=== PATIENT | female | born 1965 | race Two or more races ===

== ENCOUNTER 2018-10-21 22:31 | Emergency (ER) | payer BC ==
[2018-10-21] MEDS ORDERED: DIPHENHYDRAMINE HCL 50 MG/ML VIAL ONE (22:38)
[2018-10-21] MEDS ORDERED: FAMOTIDINE INJ/PF 20 MG/2 ML SDV IV ONE (22:38)
[2018-10-21] MEDS ORDERED: METHYLPREDNISOLONE INJ 125 MG/2 ML SDV ONE (22:38)
[2018-10-21] MEDS ORDERED: EPINEPHRINE INJ/PF 1 MG/1 ML AMPULE ONE (22:39)
--- NOTE | 2018-10-21 22:55 | ER Document Report ---
ED General - General Chief Complaint: Allergic Reaction Stated Complaint: POSSIBLE ALLERGIC REACTION Time Seen by Provider: 10/21/18 22:43 Primary Care Provider: VASILE SAGE NP [Primary Care Provider] - Follow up as needed Mode of Arrival: Ambulatory Information source: Patient TRAVEL OUTSIDE OF THE [place] IN LAST 30 DAYS: No - HPI Notes: Patient is a 52-year-old female presents the emergency department with report of allergic reaction related to antibiotic doxycycline which was started 2 days ago. The patient noted a rash and itching and now swelling of the tongue and throat which started today. The patient states she was taking the doxycycline for a finger nailbed infection which is slightly improved. The patient denies any fever, chills, chest pain, difficulty breathing, nausea, vomiting, abdominal pain. She reports no previous similar allergic reactions. She denies any other new exposures. - Related Data Allergies/Adverse Reactions: doxycycline Allergy (Verified 10/21/18 23:02) Past Medical History - General Information source: Patient - Social History Smoking Status: Never Smoker Frequency of alcohol use: None Drug Abuse: None Lives with: Family Family History: None Review of Systems - Review of Systems -: Yes All other systems reviewed and negative Physical Exam - Vital signs Vitals: Temp Pulse Resp BP Pulse Ox 98.1 F 85 22 H 142/82 H 100 10/21/18 22:33 10/21/18 22:33 10/21/18 22:33 10/21/18 22:33 10/21/18 22:33 - Notes Notes: PHYSICAL EXAMINATION: GENERAL: Well-appearing, well-nourished and in no acute distress. HEAD: Atraumatic, normocephalic. EYES: Pupils equal round and reactive to light, extraocular movements intact, conjunctiva are normal. ENT: Nares patent, oropharynx without exudates. Moist mucous membranes. Mild swelling of the lips and tongue noted. NECK: Normal range of motion, supple without lymphadenopathy LUNGS: Breath sounds clear to auscultation bilaterally and equal. No wheezes rales or rhonchi. HEART: Regular rate and rhythm without murmurs ABDOMEN: Soft, nontender, nondistended abdomen. No guarding, no rebound. No masses appreciated. Female : deferred Musculoskeletal: Normal range of motion, no pitting or edema. No cyanosis. NEUROLOGICAL: Cranial nerves grossly intact. Normal speech, normal gait. Normal sensory, motor exams PSYCH: Normal mood, normal affect. SKIN: Warm, Dry, normal turgor, urticarial response noted on the trunk and extremities. No cellulitis or evidence for abscess. Skin exam right third fingertip shows no gross evidence for cellulitis or paronychia or abscess or tenosynovitis. Course - Re-evaluation Re-evalutation: 10/21/18 22:54 Patient was given IV Solu-Medrol, Pepcid and Benadryl. 10/22/18 01:19 On repeat evaluation after medications, the patient had no further allergy symptoms or rash or difficulty swallowing. O2 sats were 97 to 100%. Repeat lung exam showed no wheezing. No anaphylaxis or systemic reaction noted. - Vital Signs Vital signs: Temp Pulse Resp BP Pulse Ox 98.1 F 85 24 H 136/82 H 99 10/21/18 22:33 10/21/18 22:33 10/22/18 01:11 10/22/18 01:11 10/22/18 01:11 Discharge - Discharge Clinical Impression: Allergic reaction caused by a drug Qualifiers: Encounter type: initial encounter Qualified Code(s): T78.40XA - Allergy, unspecified, initial encounter Condition: Stable Disposition: HOME, SELF-CARE Instructions: Acute Allergic Reaction to Drugs ([facility]) Additional Instructions: You are allergic to doxycycline and tetracycline medications. Stop taking the doxycycline now. Take Benadryl as directed for any itching or swelling. Return to the emergency department in case of difficulty breathing or worsening rash or symptoms. Drink plenty of fluids. Prescriptions: Prednisone [Deltasone 10 mg Tablet] 10 mg PO ASDIR PRN #21 tablet PRN Reason: Referrals: VASILE SAGE NP [Primary Care Provider] - Follow up as needed
[2018-10-22 01:30] VITALS: BP 129/80
--- NOTE | 2018-10-23 08:08 | EKG REPORT ---
SEVERITY:- OTHERWISE NORMAL ECG - SINUS RHYTHM VENTRICULAR PREMATURE COMPLEX : Confirmed by: Jen Esparza MD 22-Oct-2018 21:31:00
== END 2018-10-22 01:31 | disposition home or self-care (01) ==
LOC: ER 22:31
DX: T78.40XA Allergy, unspecified, initial encounter (principal); R21 Rash and other nonspecific skin eruption; R22.0 Localized swelling, mass and lump, head
CPT/HCPCS: 93005; 99284; 96374; 96375; 93010; J1200; J2930; S0028

== ENCOUNTER 2019-01-12 09:00 | Day surgery (SDC) | payer BC ==
[~2019-01-12 09:00] MED LIST: PROPOFOL INJ 200 MG/20 ML VIAL IV ONE
[2019-01-12 10:06] VITALS: BP 138/88
--- NOTE | 2019-01-12 12:48 | Operative Report ---
Operative Report DATE OF SURGERY: 01/12/19 Operative Report: The risks, benefits and alternatives of the procedure including the risk of bleeding, perforation requiring surgery have been explained to the patient in detail and informed consent has been obtained. Patient is taken back to the endoscopy suite and placed in the left, lateral decubital position. Timeout was called. Propofol medication is administered. Rectal examination is done which did not reveal any masses, tears or fissures. An Olympus videoscope was introduced into the patient's rectum. Scope was then carefully advanced all the way to the cecum. Cecum was identified by the usual anatomical landmarks including the ileocecal valve as well as the appendiceal office. Photodocumentation is obtained. Scope was then sequentially pulled back via the various segments of the colon including the ascending colon, hepatic flexure, transverse colon, splenic flexure, descending colon finding to the rectosigmoid portions of the colon. Retroflexion maneuvers performed. PREOPERATIVE DIAGNOSIS: Colorectal cancer screening POSTOPERATIVE DIAGNOSIS: Normal screening colonoscopy OPERATION: Diagnostic colonoscopy SURGEON: BARON DYER ANESTHESIA: LMAC TISSUE REMOVED OR ALTERED: None. COMPLICATIONS: None. ESTIMATED BLOOD LOSS: None. INTRAOPERATIVE FINDINGS: As noted above. PROCEDURE: Patient tolerated the procedure well. No immediate postprocedure complications are noted. Patient is discharged in good condition. Discharge date 01/12/2019. Discharge diet: Regular. Discharge activity: Regular. 10 year surveillance colonoscopy. Patient is instructed to call the office or proceed to the emergency room should there be any further problems or questions.
== END 2019-01-12 10:12 | disposition home or self-care (01) ==
LOC: END 09:00
PROVIDERS: ATTEND Internal Medicine Gastroenterology
DX: Z12.11 Encounter for screening for malignant neoplasm of colon (principal); Z79.899 Other long term (current) drug therapy; Z79.51 Long term (current) use of inhaled steroids
CPT/HCPCS: 45378; J2704; 812

== ENCOUNTER 2019-08-10 12:41 | Emergency (ER) | payer BC ==
--- NOTE | 2019-08-10 13:03 | ER Document Report ---
ED Medical Screen (RME) - General Chief Complaint: Abdominal Pain Stated Complaint: ABDOMINAL PAIN Time Seen by Provider: 08/10/19 12:55 Primary Care Provider: VASILE SAGE NP [Primary Care Provider] - Follow up as needed Mode of Arrival: Ambulatory Information source: Patient Notes: HPI; 3-year-old female with no previous medical problems presents emergency room with lower abdominal pain for the past 2 weeks. Has gotten progressively worse over the past 3 days. Denies nausea or vomiting. Has been using [id number] Azo without relief. Denies any urinary symptoms. Nuys any trauma or injury. PE: Alert and oriented x3, mild discomfort noted. Clear to auscultation without rales rhonchi wheezes, heart: Regular rate and rhythm without murmurs rubs or gallops. Abdomen soft, mild distention, tenderness to the lower portion of the abdomen positive bowel sounds x4. I have greeted and performed a rapid initial assessment of this patient. A comp rehensive ED assessment and evaluation of the patient, analysis of test results and completion of the medical decision making process will be conducted by additional ED providers. I have specifically instructed the patient or family members with the patient to immediately return to any nursing staff should anything change in the patient's condition or with their chief complaint. TRAVEL OUTSIDE OF THE [place] IN LAST 30 DAYS: No - Related Data Allergies/Adverse Reactions: doxycycline Allergy (Verified 01/12/19 09:13) Past Medical History - Social History Frequency of alcohol use: None Drug Abuse: None - Past Medical History Cardiac Medical History: Denies: Hx Coronary Artery Disease, Hx Heart Attack, Hx Hypertension Pulmonary Medical History: Reports: Hx Asthma - CHILD Denies: Hx Bronchitis, Hx COPD, Hx Pneumonia Neurological Medical History: Denies: Hx Cerebrovascular Accident, Hx Seizures Renal/ Medical History: Denies: Hx Peritoneal Dialysis Musculoskeltal Medical History: Reports Hx Arthritis - Immunizations Hx Diphtheria, Pertussis, Tetanus Vaccination: No - UNSURE Physical Exam - Vital signs Vitals: Temp Pulse Resp BP Pulse Ox 98.3 F 89 18 136/95 H 98 08/10/19 12:45 08/10/19 12:45 08/10/19 12:45 08/10/19 12:45 08/10/19 12:45 Course - Vital Signs Vital signs: Temp Pulse Resp BP Pulse Ox 98.3 F 89 18 136/95 H 98 08/10/19 12:56 08/10/19 12:45 08/10/19 12:45 08/10/19 12:45 08/10/19 12:45 Doctor's Discharge - Discharge Referrals: VASILE SAGE NP [Primary Care Provider] - Follow up as needed
[2019-08-10] MEDS ORDERED: NORMAL SALINE 1000 ML 1,000 ML IV ONE (13:18)
[2019-08-10] MEDS ORDERED: RINGERS SOLUTION,LACTATED 1,000 ML IV ONE (13:18)
[2019-08-10] MEDS ORDERED: ONDANSETRON HCL INJ/PF 4 MG/2 ML SDV IV ONE (13:19)
[2019-08-10] MEDS ORDERED: MORPHINE SULFATE 10 MG/ML INJ IV ONE ×2 (13:19→14:47)
[2019-08-10 13:25] LABS: ABSOLUTE BASOPHILS # (AUTO) 0.1 10^3/uL (0.0-0.2); ABSOLUTE EOSINOPHILS # (AUTO) 0.5 10^3/uL (0.0-0.6); ABSOLUTE LYMPHOCYTES (AUTO) 2.6 10^3/uL (0.5-4.7); ABSOLUTE MONOCYTES (AUTO) 0.6 10^3/uL (0.1-1.4); ABSOLUTE NEUT (AUTO) 2.8 10^3/uL (1.7-8.2); BASOPHILS % (AUTO) 0.9 % (0-2); EOSINOPHILS % (AUTO) 7.2 % (0-6); HEMATOCRIT 42.1 % (36.0-47.0); HEMOGLOBIN 14.3 g/dL (12.0-15.5); LYMPHOCYTES % (AUTO) 40.6 % (13-45); MEAN CORPUSCULAR HEMOGLOBIN 29.9 pg (27.0-33.4); MEAN CORPUSCULAR HGB CONC 33.9 g/dL (32.0-36.0); MEAN CORPUSCULAR VOLUME 88 fl (80-97); MONOCYTES % (AUTO) 8.5 % (3-13); PLATELET COUNT 301 10^3/uL (150-450); RED BLOOD COUNT 4.78 10^6/uL (3.72-5.28); RED CELL DISTRIBUTION WIDTH 13.3 % (11.5-14.0); SEGMENTED NEUTROPHILS % (AUTO) 42.8 % (42-78); TOTAL CELLS COUNTED % (AUTO) 100 %; WHITE BLOOD COUNT 6.5 10^3/uL (4.0-10.5)
--- NOTE | 2019-08-10 13:26 | ER Document Report ---
ED GI/ - General Chief Complaint: Abdominal Pain Stated Complaint: ABDOMINAL PAIN Time Seen by Provider: 08/10/19 12:55 Primary Care Provider: ALEXANDRA JORDAN MD [ACTIVE STAFF] - Follow up in 1 week VASILE SAGE NP [NURSE PRACTITIONER] - Follow up as needed Mode of Arrival: Ambulatory Information source: Patient Notes: 53-year-old female presented to ED for complaint of a pelvic pain for about 2 weeks. She states is gotten progressively worse over the last 3 days. She denies any nausea or vomiting has been using [id number] Tylenol and Azo with no relief. She states she has no urinary symptoms. She states the pain started out mild and is become severe now she is curled up in a ball. She states she has been to the doctor multiple times told pelvic pain and they told her it was just a UTI or something and sent her home but the pain is continually gotten worse. She does have a mass in the suprapubic area at this time it is palpable through the abdomen TRAVEL OUTSIDE OF THE [place] IN LAST 30 DAYS: No - HPI Patient complains to provider of: Abdominal pain, Pelvic pain Onset: Other Timing/Duration: Gradual - 3 weeks, Worse Quality of pain: Cramping, Sharp Severity at maximum: Severe Severity in ED: Severe Pain Level: 5 Location: Suprapubic Vaginal bleeding (Compared to normal period): None LMP: Hysterectomy still has ovaries Associated symptoms: None Exacerbated by: Movement, Walking Relieved by: Denies Similar symptoms previously: Yes Recently seen / treated by doctor: No - Related Data Allergies/Adverse Reactions: doxycycline Allergy (Verified 01/12/19 09:13) Past Medical History - General Information source: Patient - Social History Smoking Status: Never Smoker Frequency of alcohol use: None Drug Abuse: None Lives with: Family Family History: None Patient has homicidal ideation: No - Past Medical History Cardiac Medical History: Reports: None Pulmonary Medical History: Reports: Hx Asthma - CHILD EENT Medical History: Reports: None Neurological Medical History: Reports: None Endocrine Medical History: Reports: None Renal/ Medical History: Reports: None Malignancy Medical History: Reports: None GI Medical History: Reports: None Musculoskeletal Medical History: Reports Hx Arthritis Skin Medical History: Reports None Psychiatric Medical History: Reports: None Traumatic Medical History: Reports: None Infectious Medical History: Reports: None Past Surgical History: Reports: Hx Hysterectomy - Partial hysterectomy still has ovaries - Immunizations Hx Diphtheria, Pertussis, Tetanus Vaccination: No - UNSURE Review of Systems - Review of Systems Constitutional: No symptoms reported EENT: No symptoms reported Cardiovascular: No symptoms reported Respiratory: No symptoms reported Gastrointestinal: Abdominal pain - Suprapubic Genitourinary: No symptoms reported Female Genitourinary: No symptoms reported Musculoskeletal: No symptoms reported Skin: No symptoms reported Hematologic/Lymphatic: No symptoms reported Neurological/Psychological: No symptoms reported -: Yes All other systems reviewed and negative Physical Exam - Vital signs Vitals: Temp Pulse Resp BP Pulse Ox 98.3 F 89 18 136/95 H 98 08/10/19 12:45 08/10/19 12:45 08/10/19 12:45 08/10/19 12:45 08/10/19 12:45 Interpretation: Normal - General General appearance: Appears well, Alert - HEENT Head: Normocephalic, Atraumatic Eyes: Normal Pupils: PERRL - Respiratory Respiratory status: No respiratory distress Chest status: Nontender Breath sounds: Normal Chest palpation: Normal - Cardiovascular Rhythm: Regular Heart sounds: Normal auscultation Murmur: No - Abdominal Inspection: Normal Distension: No distension Bowel sounds: Normal Tenderness: Tender - Suprapubic Organomegaly: Mass - Firm mass suprapubic - Back Back: Normal, Nontender - Extremities General upper extremity: Normal inspection, Nontender, Normal color, Normal ROM, Normal temperature General lower extremity: Normal inspection, Nontender, Normal color, Normal ROM, Normal temperature, Normal weight bearing. No: Nikko's sign - Neurological Neuro grossly intact: Yes Cognition: Normal Orientation: AAOx4 [place] Coma Scale Eye Opening: Spontaneous [place] Coma Scale Verbal: Oriented [place]ón[place] Coma Scale Motor: Obeys Commands [place] Coma Scale Total: 15 Speech: Normal Motor strength normal: LUE, RUE, LLE, RLE Sensory: Normal - Psychological Associated symptoms: Normal affect, Normal mood - Skin Skin Temperature: Warm Skin Moisture: Dry Skin Color: Normal Course - Re-evaluation Re-evalutation: 08/10/19 14:49 CT returned with a 6 result of the superficial tissue collection measuring 1.7 x 5 x 2.8 cm most likely postoperative seroma or hematoma. He states there is no air or surrounding inflammatory changes to suggest abscess but a early abscess cannot be excluded. This area is very firm to the palpation. I consulted Dr. Jordan who asked that I consult interventional radiologist to drain this area I spoke with the radiologist says that this was not something that needed to be drained or you could put a drain in. It is a firm area. I did have Dr. toribio go down and examined the mass. He states he is too firm to put a needle in. He states to please consult the surgeon. Patient also has a UTI and she will be treated with Rocephin for the UTI while were awaiting the surgeon to come in examined the patient. She is also been given more morphine due to the pain in the area. 08/10/19 15:23 The Serjio to the bedside drained the seroma removed 4cc of dark red drainage. He stated to have her follow-up with his office in about a week so he can reexamine the area. He stated that Keflex that I am using for her UTI will be good enough for coverage for what he did. He states he will write a consult note. - Vital Signs Vital signs: Temp Pulse Resp BP Pulse Ox 97.4 F 79 18 134/91 H 96 08/10/19 15:32 08/10/19 15:32 08/10/19 15:32 08/10/19 15:32 08/10/19 15:32 - Laboratory Result Diagrams: 08/10/19 13:04 08/10/19 13:04 Laboratory results interpreted by me: 08/10/19 08/10/19 08/10/19 13:04 13:04 13:04 Eos % (Auto) 7.2 H Carbon Dioxide 31 H Anion Gap 4 L Urine Urobilinogen 2.0 H Ur Leukocyte Esterase MODERATE H - Diagnostic Test Radiology reviewed: Image reviewed, Reports reviewed Discharge - Discharge Clinical Impression: suprapubic seroma UTI (urinary tract infection) Qualifiers: Urinary tract infection type: acute cystitis Hematuria presence: with hematuria Qualified Code(s): N30.01 - Acute cystitis with hematuria Condition: Stable Disposition: HOME, SELF-CARE Additional Instructions: URINARY TRACT INFECTION: Your evaluation indicates that you have a urinary tract infection. This is due to germs growing in the bladder. This is a common problem. This infection usually responds quickly to antibiotics. Your antibiotic should be taken exactly as prescribed. Drink plenty of fluids -- three to four quarts a day. Occasionally, a bladder anesthetic will be prescribed to help stop the feeling of urgency until the antibiotic has a chance to clear the infection. This may cause your urine to be dark orange. Certain urine infections require a culture. If the doctor obtained a culture, the results will be back in two days. You should call to see if a change in treatment is needed. A repeat urinalysis after you finish treatment is often recommended. The physician will let you know if further testing is required. Call the doctor if you develop fever, chills, flank pain, inability to urinate, or blood in the urine. You were seen today for a seroma which is a blood-filled pocket in your abdomen. This has been drained by the surgeon in the emergency room. He has requested that you follow-up with him in 1 week to follow-up to ensure that this is not return. I have given you the name and number for the surgeon for you to follow- up. CEPHALEXIN: The antibiotic you've been prescribed is a member of the cephalosporin class. This type of antibiotic covers a wide variety of infections, including those of the skin, lungs, and urinary tract. It's useful for staph infections. This antibiotic is slightly similar to the penicillin family. In rare cases, a person who is allergic to penicillin will also be allergic to this medication. If you have had a severe allergic reaction to penicillin, and have not taken this antibiotic since that time, notify your doctor. Antibiotics which cover many germs ("broad spectrum" antibiotics) are more likely to cause diarrhea or "yeast" infections. Women prone to vaginal yeast problems may suffer an attack after taking this antibiotic. In infants, oral thrush (white spots "stuck" on the cheek) or yeast diaper rash may result. See your doctor if these problems occur. Call at once if you develop itching, hives, shortness of breath, or lightheadedness. Pain Medication Injection You have received an injection of a pain medication. You should experience significant pain relief within 45 minutes. This drug is a narcotic -- it will impair your judgement, slow your reaction time and make you sleepy (as well as relieve your pain). Narcotics also can cause nausea. You should not drive, work with machinery, or perform any task requiring mental alertness until all effects of the medication are gone -- six to eight hours. Do not take any alcohol, or sedatives, and do not take any other medication without checking with your physician. Intravenous (IV) Fluids As part of your care today, you received intravenous (IV) fluids. IV fluids are administered to patients who are dehydrated or to those who have certain chemical (electrolyte) abnormalities that need correcting. FOLLOW-UP CARE: If you have been referred to a physician for follow-up care, call the physicians office for an appointment as you were instructed or within the next two days. If you experience worsening or a significant change in your symptoms, notify the physician immediately or return to the Emergency Department at any time for re-evaluation. Prescriptions: Cephalexin Monohydrate [Keflex 500 mg Capsule] 500 mg PO Q6H 7 Days #28 capsule Forms: Elevated Blood Pressure Referrals: VASILE SAGE NP [NURSE PRACTITIONER] - Follow up as needed ALEXANDRA JORDAN MD [ACTIVE STAFF] - Follow up in 1 week
[2019-08-10 13:30] LABS: APPEARANCE,URINE SLIGHTLY-CLOUDY; BILIRUBIN,URINE NEGATIVE (NEGATIVE); COLOR,URINE AMBER; GLUCOSE, URINE NEGATIVE (NEGATIVE); KETONES,URINE NEGATIVE (NEGATIVE); LEUKOCYTE ESTERASE,URINE MODERATE (NEGATIVE); NITRITE,URINE NEGATIVE (NEGATIVE); PROTEIN,URINE NEGATIVE (NEGATIVE); URINE SPECIFIC GRAVITY 1.021
[2019-08-10 13:44] LABS: ALBUMIN 4.4 g/dL (3.5-5.0); ALKALINE PHOSPHATASE 54 U/L (38-126); ASPARTATE AMINO TRANSFERASE 31 U/L (14-36); BILIRUBIN,TOTAL 0.9 mg/dL (0.2-1.3); BLOOD UREA NITROGEN 13 mg/dL (7-20); CALCIUM 9.7 mg/dL (8.4-10.2); CARBON DIOXIDE 31 mmol/L (22-30); CHLORIDE 102 mmol/L (98-107); GLUCOSE 77 mg/dL (75-110); POTASSIUM 4.7 mmol/L (3.6-5.0); TOTAL PROTEIN 7.7 g/dL (6.3-8.2)
[2019-08-10 13:46] LABS: ANION GAP 4 (5-19)
--- NOTE | 2019-08-10 14:26 | RADIOLOGY REPORT (SQ) ---
EXAM DESCRIPTION: CT ABD/PELVIS WITH IV ONLY IMAGES COMPLETED DATE/TIME: 08/10/2019 2:13 pm REASON FOR STUDY: pelvic mass post hysterectomy COMPARISON: None. TECHNIQUE: CT scan of the abdomen and pelvis performed using helical scanning technique with dynamic intravenous contrast injection. No oral contrast. Images reviewed with lung, soft tissue, and bone windows. Reconstructed coronal and sagittal MPR images reviewed. Delayed images for evaluation of the urinary system also acquired. All images stored on PACS. All CT scanners at this facility use dose modulation, iterative reconstruction, and/or weight based d osing when appropriate to reduce radiation dose to as low as reasonably achievable (ALARA). [facility]: Dose Right [facility]: CareDose [facility]: Dose Right [facility]: Teradose 4D [facility]: Orthobond CONTRAST TYPE AND DOSE: contrast/concentration: Isovue 350.00 mg/ml; Total Contrast Delivered: 66.0 ml; Total Saline Delivered: 65.0 ml RENAL FUNCTION: BUN 13, creatinine 0.68 RADIATION DOSE: CT Rad equipment meets quality standard of care and radiation dose reduction techniq ues were employed. CTDIvol: 5.1 - 6.3 mGy. DLP: 611 mGy-cm.. LIMITATIONS: None. FINDINGS: LOWER CHEST: No significant findings. No nodules or infiltrates. LIVER: Normal size. No masses. No dilated ducts. SPLEEN: Normal size. No focal lesions. PANCREAS: No masses. No significant calcifications. No adjacent inflammation or peripancreatic fluid collections. Pancreatic duct not dilated. GALLBLADDER: No identified stones by CT criteria. No inflammatory changes to suggest cholecystitis. ADRENAL GLANDS: No significant masses or asymmetry. RIGHT KIDNEY AND URETER: No solid masses. No significant calcifications. No hydronephrosis or hyd roureter. LEFT KIDNEY AND URETER: No solid masses. No significant calcifications. No hydronephrosis or hydr oureter. AORTA AND VESSELS: No aneurysm. No dissection. Renal arteries, SMA, celiac without stenosis. RETROPERITONEUM: No retroperitoneal adenopathy, hemorrhage or masses. BOWEL AND PERITONEAL CAVITY: No masses or inflammatory changes. No free fluid or peritoneal masses. APPENDIX: No surrounding inflammation. The tip of the appendix is bulbous in shape containing stool. PELVIS: No mass. No free fluid. Normal bladder. ABDOMINAL WALL: There is a 1.7 x 5.0 x 2.8 cm fluid collection in the anterior abdominal wall. This lies just superficial to the abdominis rectus muscle. Most likely postoperative seroma. The collect ion contains no air. Hounsfield units measure 31. The collection lies just inferior to the umbilicu s. BONES: No significant or acute findings. OTHER: No other significant finding. IMPRESSION: Superficial soft tissue fluid collection measuring 1.7 x 5.0 x 2.8 cm. Most likely post operative seroma or hematoma. No air or surrounding inflammatory change to suggest abscess although early abscess formation cannot be excluded. TECHNICAL DOCUMENTATION: JOB ID: [id number] Quality ID # [id number]: Final reports with documentation of one or more dose reduction techniques (e.g., Au tomated exposure control, adjustment of the mA and/or kV according to patient size, use of iterative reconstruction technique) 2010 [employer]- All Rights Reserved Reading location - IP/workstation name: [email or web address]
[2019-08-10] MEDS ORDERED: CEFTRIAXONE 1 GM/D5W RTU 1 GM/50 ML RTUPB IV ONE (14:46)
[2019-08-10 15:33] VITALS: BP 134/91
--- NOTE | 2019-08-10 15:38 | Operative Report ---
Nonrecallable Operative Report DATE OF SURGERY: 08/10/19 PREOPERATIVE DIAGNOSIS: Abdominal wall seroma POSTOPERATIVE DIAGNOSIS: Abdominal wall seroma OPERATION: Percutaneous drainage abdominal wall seroma SURGEON: ALEXANDRA JORDAN ANESTHESIA: Local TISSUE REMOVED OR ALTERED: 15 cc of serous fluid COMPLICATIONS: None ESTIMATED BLOOD LOSS: 0 INTRAOPERATIVE FINDINGS: Abdominal wall seroma PROCEDURE: Patient was seen lying on her gurney in the emergency room. The lower abdomen over the swelling was prepped with a alcohol swab. Using a 16-gauge needle the seroma cavity was entered and we drained approximately 15 to 20 cc of serosanguineous fluid. This resolved the her pain and the swelling. We will see the patient back in 1 week for follow-up in surgical clinic.
== END 2019-08-10 15:43 | disposition home or self-care (01) ==
LOC: ER 12:41
PROC: 0J983ZZ Drainage of Abdomen Subcutaneous Tissue and Fascia, Percutaneous Approach (ICD-10-PCS; principal; 2019-08-10)
DX: N30.01 Acute cystitis with hematuria (principal); L02.211 Cutaneous abscess of abdominal wall; R10.30 Lower abdominal pain, unspecified; R10.9 Unspecified abdominal pain; R10.2 Pelvic and perineal pain; J45.909 Unspecified asthma, uncomplicated; Z88.1 Allergy status to other antibiotic agents
CPT/HCPCS: 96376; 99284; 96361; 96375; 96365; 36415; 87086; 83690; 85025; 87088; 80053; 81001; 87186; 74177; 10140; J2270; J2405; J7030; J0696

== ENCOUNTER 2019-09-23 09:41 | Emergency (ER) | payer BC ==
--- NOTE | 2019-09-23 10:22 | ER Document Report ---
ED Medical Screen (RME) - General Chief Complaint: Abdominal Pain Stated Complaint: ABDOMINAL PAIN Time Seen by Provider: 09/23/19 10:07 Notes: HPI: 53-year-old female presenting for worsening abdominal wall pain. Patient states for 2 months she has had a tender swollen area in the lower suprapubic region. Patient states she was seen here August 09 and was seen by the surgeon Dr. Bassett. States that he aspirated fluid from the area and it felt better. She saw him in the office after that he aspirated fluid again and it felt better. She states the area progressively becomes more tender and now she cannot take the pain anymore. Patient states the pain get so bad she feels like she is going to pass out. She has not had a fever. She has not noticed any redness overlying the area. She states she has an appointment September 30 in the office again with surgery. PHYSICAL EXAMINATION: There is a firm tender area midline suprapubic region just below the umbilicus with no overlying erythema. Discussed with Dr. Caballero who evaluated patient in triage I have greeted and performed a rapid initial assessment of this patient. A comprehensive ED assessment and evaluation of the patient, analysis of test results and completion of medical decision making process will be conducted by an additional ED providers. TRAVEL OUTSIDE OF THE [place] IN LAST 30 DAYS: No - Related Data Allergies/Adverse Reactions: doxycycline Allergy (Verified 01/12/19 09:13) Past Medical History - Past Medical History Cardiac Medical History: Denies: Hx Coronary Artery Disease, Hx Heart Attack, Hx Hypertension Pulmonary Medical History: Reports: Hx Asthma - CHILD Denies: Hx Bronchitis, Hx COPD, Hx Pneumonia Neurological Medical History: Denies: Hx Cerebrovascular Accident, Hx Seizures Renal/ Medical History: Denies: Hx Peritoneal Dialysis Musculoskeltal Medical History: Reports Hx Arthritis Past Surgical History: Reports: Hx Hysterectomy - Partial hysterectomy still has ovaries, Other - Abdominoplasty - Immunizations Hx Diphtheria, Pertussis, Tetanus Vaccination: No - UNSURE Physical Exam - Vital signs Vitals: Temp Pulse Resp BP 97.7 F 89 16 120/83 09/23/19 09:46 09/23/19 09:46 09/23/19 09:46 09/23/19 09:46 Course - Vital Signs Vital signs: Temp Pulse Resp BP Pulse Ox 97.7 F 89 16 120/83 09/23/19 09:46 09/23/19 09:46 09/23/19 09:46 09/23/19 09:46
[2019-09-23 10:43] LABS: ABSOLUTE EOSINOPHILS # (AUTO) 0.2 10^3/uL (0.0-0.6); ABSOLUTE LYMPHOCYTES (AUTO) 2.5 10^3/uL (0.5-4.7); ABSOLUTE MONOCYTES (AUTO) 0.5 10^3/uL (0.1-1.4); ABSOLUTE NEUT (AUTO) 2.3 10^3/uL (1.7-8.2); BASOPHILS % (AUTO) 0.6 % (0-2); EOSINOPHILS % (AUTO) 3.6 % (0-6); HEMATOCRIT 41.1 % (36.0-47.0); HEMOGLOBIN 13.9 g/dL (12.0-15.5); LYMPHOCYTES % (AUTO) 45.1 % (13-45); MEAN CORPUSCULAR HEMOGLOBIN 30.1 pg (27.0-33.4); MEAN CORPUSCULAR HGB CONC 33.8 g/dL (32.0-36.0); MEAN CORPUSCULAR VOLUME 89 fl (80-97); MONOCYTES % (AUTO) 9.8 % (3-13); PLATELET COUNT 288 10^3/uL (150-450); RED BLOOD COUNT 4.62 10^6/uL (3.72-5.28); RED CELL DISTRIBUTION WIDTH 12.9 % (11.5-14.0); SEGMENTED NEUTROPHILS % (AUTO) 40.9 % (42-78); TOTAL CELLS COUNTED % (AUTO) 100 %; WHITE BLOOD COUNT 5.6 10^3/uL (4.0-10.5)
[2019-09-23 10:47] LABS: APPEARANCE,URINE CLEAR; BILIRUBIN,URINE NEGATIVE (NEGATIVE); COLOR,URINE YELLOW; GLUCOSE, URINE NEGATIVE (NEGATIVE); KETONES,URINE TRACE mg/dL (NEGATIVE); LEUKOCYTE ESTERASE,URINE NEGATIVE (NEGATIVE); NITRITE,URINE NEGATIVE (NEGATIVE); PROTEIN,URINE NEGATIVE (NEGATIVE); URINE SPECIFIC GRAVITY 1.023
[2019-09-23 10:59] LABS: ALBUMIN 4.3 g/dL (3.5-5.0); ALKALINE PHOSPHATASE 80 U/L (38-126); ASPARTATE AMINO TRANSFERASE 27 U/L (14-36); BILIRUBIN,TOTAL 0.4 mg/dL (0.2-1.3); BLOOD UREA NITROGEN 11 mg/dL (7-20); CALCIUM 9.7 mg/dL (8.4-10.2); CHLORIDE 105 mmol/L (98-107); GLUCOSE 85 mg/dL (75-110); POTASSIUM 4.3 mmol/L (3.6-5.0); TOTAL PROTEIN 7.3 g/dL (6.3-8.2)
[2019-09-23 11:04] LABS: ANION GAP 5 (5-19); CARBON DIOXIDE 29 mmol/L (22-30)
--- NOTE | 2019-09-23 11:55 | RADIOLOGY REPORT (SQ) ---
EXAM DESCRIPTION: CT ABD/PELVIS WITH IV ONLY IMAGES COMPLETED DATE/TIME: 09/23/2019 11:21 am REASON FOR STUDY: eval abd wall fluid/tender area COMPARISON: 08/10/2019 TECHNIQUE: CT scan of the abdomen and pelvis performed using helical scanning technique with dynamic intravenous contrast injection. No oral contrast. Images reviewed with lung, soft tissue, and bone windows. Reconstructed coronal and sagittal MPR images reviewed. Delayed images for evaluation of the urinary system also acquired. All images stored on PACS. All CT scanners at this facility use dose modulation, iterative reconstruction, and/or weight based d osing when appropriate to reduce radiation dose to as low as reasonably achievable (ALARA). [facility]: Dose Right [facility]: CareDose [facility]: Dose Right [facility]: Teradose 4D [facility]: Exepron CONTRAST TYPE AND DOSE: contrast/concentration: Isovue 350.00 mmol/ml; Total Contrast Delivered: 67. 0 ml; Total Saline Delivered: 65.0 ml RENAL FUNCTION: BUN 11, creatinine 0.74 RADIATION DOSE: CT Rad equipment meets quality standard of care and radiation dose reduction techniq ues were employed. CTDIvol: 5.6 - 7.3 mGy. DLP: 698 mGy-cm.. LIMITATIONS: None. FINDINGS: LOWER CHEST: No significant findings. No nodules or infiltrates. LIVER: Normal size. No masses. No dilated ducts. SPLEEN: Normal size. No focal lesions. PANCREAS: No masses. No significant calcifications. No adjacent inflammation or peripancreatic fluid collections. Pancreatic duct not dilated. GALLBLADDER: No identified stones by CT criteria. No inflammatory changes to suggest cholecystitis. ADRENAL GLANDS: No significant masses or asymmetry. RIGHT KIDNEY AND URETER: No solid masses. No significant calcifications. No hydronephrosis or hyd roureter. LEFT KIDNEY AND URETER: No solid masses. No significant calcifications. No hydronephrosis or hydr oureter. AORTA AND VESSELS: No aneurysm. No dissection. Renal arteries, SMA, celiac without stenosis. RETROPERITONEUM: No retroperitoneal adenopathy, hemorrhage or masses. BOWEL AND PERITONEAL CAVITY: No masses or inflammatory changes. No free fluid or peritoneal masses. APPENDIX: Not visualized. PELVIS: No mass. No free fluid. Normal bladder. ABDOMINAL WALL: Persistent small fluid collection along the lower anterior abdominal wall. It measur es 1.4 x 5.9 cm in greatest diameter. Persistent peripheral enhancement. BONES: No significant or acute findings. OTHER: No other significant finding. IMPRESSION: The subcutaneous anterior abdominal wall fluid collection remains. Largest diameter is 1.4 x 5.9 cm on today's exam. TECHNICAL DOCUMENTATION: JOB ID: [id number] Quality ID # [id number]: Final reports with documentation of one or more dose reduction techniques (e.g., Au tomated exposure control, adjustment of the mA and/or kV according to patient size, use of iterative reconstruction technique) 2010 [employer]- All Rights Reserved Reading location - IP/workstation name: [email or web address]
[2019-09-23] MEDS ORDERED: HYDROCODONE/ACETAMINOPHEN 5-325 MG TABLET PO ONE (12:36)
--- NOTE | 2019-09-23 12:36 | ER Document Report ---
ED General - General Chief Complaint: Abdominal Pain Stated Complaint: ABDOMINAL PAIN Time Seen by Provider: 09/23/19 10:07 Primary Care Provider: MILKA BLUNT MD [Primary Care Provider] - Follow up as needed Mode of Arrival: Ambulatory Information source: Patient TRAVEL OUTSIDE OF THE [place] IN LAST 30 DAYS: No - HPI Notes: Patient presents complaint of abdominal pain. She states this pain is in the center of her abdomen and the lower aspect below the umbilicus. She states she has had it several times before. She states she has a collection of fluid there is a has been drained by Dr. Jordan several times. She states that she has a new appointment on September 30 which is approximately 8 days from now. She states th e pain is so bad that she cannot wait until September 30. She states his pain is severe and constant. It is sharp. It radiates across her lower abdomen. She states is worse with movement and better with rest. She denies any vomiting or diarrhea. No fevers. - Related Data Allergies/Adverse Reactions: doxycycline Allergy (Verified 01/12/19 09:13) Past Medical History - General Information source: Patient - Social History Smoking Status: Never Smoker Frequency of alcohol use: None Drug Abuse: None Family History: None - Past Medical History Cardiac Medical History: Denies: Hx Coronary Artery Disease, Hx Heart Attack, Hx Hypertension Pulmonary Medical History: Reports: Hx Asthma - CHILD Denies: Hx Bronchitis, Hx COPD, Hx Pneumonia Neurological Medical History: Denies: Hx Cerebrovascular Accident, Hx Seizures Renal/ Medical History: Denies: Hx Peritoneal Dialysis Musculoskeletal Medical History: Reports Hx Arthritis Past Surgical History: Reports: Hx Hysterectomy - Partial hysterectomy still has ovaries, Other - Abdominoplasty - Immunizations Hx Diphtheria, Pertussis, Tetanus Vaccination: No - UNSURE Review of Systems - Review of Systems Constitutional: denies: Chills, Fever Cardiovascular: denies: Chest pain, Palpitations Respiratory: denies: Cough, Short of breath -: Yes All other systems reviewed and negative Physical Exam - Vital signs Vitals: Temp Pulse Resp BP 97.7 F 89 16 120/83 09/23/19 09:46 09/23/19 09:46 09/23/19 09:46 09/23/19 09:46 Interpretation: Normal - General General appearance: Appears well, Alert - HEENT Head: Normocephalic, Atraumatic Eyes: Normal Pupils: PERRL - Respiratory Respiratory status: No respiratory distress Chest status: Nontender Breath sounds: Normal Chest palpation: Normal - Cardiovascular Rhythm: Regular Heart sounds: Normal auscultation Murmur: No - Abdominal Inspection: Normal Distension: No distension Bowel sounds: Normal Tenderness: Tender - Patient has marked tenderness of the lower central abdomen. Some mild fluctuance consistent with a seroma. There is voluntary guarding. Organomegaly: No organomegaly - Back Back: Normal, Nontender - Extremities General upper extremity: Normal inspection, Nontender, Normal color, Normal ROM, Normal temperature General lower extremity: Normal inspection, Nontender, Normal color, Normal ROM, Normal temperature, Normal weight bearing. No: Nikko's sign - Neurological Neuro grossly intact: Yes Cognition: Normal Orientation: AAOx4 [place] Coma Scale Eye Opening: Spontaneous [place] Coma Scale Verbal: Oriented [place] Coma Scale Motor: Obeys Commands Ver[place] Coma Scale Total: 15 Speech: Normal Motor strength normal: LUE, RUE, LLE, RLE Sensory: Normal - Psychological Associated symptoms: Normal affect, Normal mood - Skin Skin Temperature: Warm Skin Moisture: Dry Skin Color: Normal Course - Re-evaluation Re-evalutation: 09/23/19 12:33 Patient has no white count. No fever. Her vital signs are stable. Inspection of the area is unremarkable. I called and discussed the case with Dr. Bonds. He states that she can be seen in surgery clinic tomorrow by Dr. Jordan. - Vital Signs Vital signs: Temp Pulse Resp BP Pulse Ox 97.7 F 89 16 120/83 09/23/19 09:46 09/23/19 09:46 09/23/19 09:46 09/23/19 09:46 - Laboratory Result Diagrams: 09/23/19 10:20 09/23/19 10:20 Laboratory results interpreted by me: 09/23/19 09/23/19 10:15 10:20 Lymph % (Auto) 45.1 H Seg Neutrophils % 40.9 L Urine Ketones TRACE H Urine Urobilinogen 2.0 H - Diagnostic Test Radiology reviewed: Image reviewed, Reports reviewed Discharge - Discharge Clinical Impression: Seroma Condition: Stable Disposition: HOME, SELF-CARE Instructions: Abdominal Pain ([facility]) Additional Instructions: Please go to Dr. Jordan's office tomorrow. Prescriptions: Hydrocodone/Acetaminophen [Vansant 5-325 mg Tablet] 1 tab PO Q6 PRN 2 Days #5 tablet PRN Reason: Forms: Return to Work Referrals: MILKA BLUNT MD [Primary Care Provider] - Follow up as needed ALEXANDRA JORDAN MD [ACTIVE STAFF] - Follow up tomorrow
[2019-09-23 13:03] VITALS: BP 123/88
== END 2019-09-23 13:03 | disposition home or self-care (01) ==
LOC: ER 09:41
DX: S31.109A Unspecified open wound of abdominal wall, unspecified quadrant without penetration into peritoneal cavity, initial encounter (principal); R10.30 Lower abdominal pain, unspecified; X58.XXXA Exposure to other specified factors, initial encounter
CPT/HCPCS: 36415; 74177; 80053; 81001; 85025; 99284

== ENCOUNTER 2019-10-29 06:45 | Day surgery (SDC) | payer BC ==
[~2019-10-29 06:45] MED LIST changes: +CEFAZOLIN 2 GM/D5W RTU 2 GM/50 ML RTUPB IV PRN; -PROPOFOL INJ 200 MG/20 ML VIAL IV ONE
[2019-10-29] MEDS ORDERED: FENTANYL CITRATE INJ/PF 250 MCG/5 ML AMPULE ONE (07:11)
[2019-10-29] MEDS ORDERED: EPHEDRINE SULFATE INJ 50 MG/1 ML AMPULE ONE (07:11)
[2019-10-29] MEDS ORDERED: PROPOFOL INJ 200 MG/20 ML VIAL IV ONE (07:11)
[2019-10-29] MEDS ORDERED: MIDAZOLAM 2 MG/2 ML INJ ONE (07:11)
[2019-10-29] MEDS ORDERED: CEFAZOLIN 2 GM/D5W RTU 2 GM/50 ML RTUPB IV ONE (08:06)
[2019-10-29] MEDS ORDERED: BUPIVACAINE INJ/PF LIPOSOME/PF 266 MG/20 ML SDV ONE (08:31)
[2019-10-29] MEDS ORDERED: BUPIVACAINE HCL 0.25% /EPINEPHRINE INJ/PF 30 ML SDV ONE (08:31)
[2019-10-29] MEDS ORDERED: FENTANYL CITRATE INJ/PF 100 MCG/2 ML AMPUL IV PRN ×3 (09:35)
[2019-10-29] MEDS ORDERED: OXYCODONE-ACETAMINOPHEN 5-325 MG TABLET PO PRN ×3 (09:35→10:14)
[2019-10-29] MEDS ORDERED: MEPERIDINE HCL/PF INJ 25 MG/1 ML DISP.SYRIN IV PRN (09:35)
[2019-10-29] MEDS ORDERED: PROMETHAZINE HCL INJ 25 MG/1 ML VIAL IV PRN ×2 (09:35)
[2019-10-29] MEDS ORDERED: DIPHENHYDRAMINE HCL 50 MG/ML VIAL IV PRN (09:35)
--- NOTE | 2019-10-29 09:58 | Operative Report ---
Nonrecallable Operative Report DATE OF SURGERY: 10/29/19 PREOPERATIVE DIAGNOSIS: abdominal wall mass POSTOPERATIVE DIAGNOSIS: abdominal wall mass OPERATION: panniculectomy revision and excision of abdominal wall mass SURGEON: ALEXANDRA JORDAN 1ST MEDICAL RECEPTION: SANDEEP SETH ANESTHESIA: GA TISSUE REMOVED OR ALTERED: abdominal wall mass, skin, subcutaneous tissue COMPLICATIONS: none ESTIMATED BLOOD LOSS: 50cc PROCEDURE: Patient was brought to the operating room awake alert stable condition placed in the operative table supine position induced under general anesthesia intubated. The abdomen was prepped draped in usual sterile manner for the procedure. The lower transverse scar just above the pubic symphysis had and what had widened and therefore we excised this in elliptical fashion approximately a 35 cm length by 1.5 cm wide elliptical incision was made in the lower midline scar that skin was excised. With that was completed we used skin hooks to raise the superior flap and this was done by dissecting down through subcutaneous tissue to the fascia of the rectus muscle and then extending a superior skin flap as we reached the umbilicus we noted the abdominal mass in the subcutaneous tissue and therefore separately we raised the skin above that area of subcutaneous tissue with the rakes this was done with Bovie cautery. Once we were above the mass we excised that section of subcutaneous tissue and opened on the back table. The capsule of the mass appeared to be a old organized hematoma however it was sent down to pathology. Once this was completed we will raised the lower skin flap with Bovie cautery on the rectus muscle to the pubic symphysis and then closed it in 2 layers the Jarred's layer was closed with interrupted 2-0 Vicryl over a Garcia-Ibrahim drain coming out through a separate stab wound in the left lower quadrant the the superficial subcutaneous tissue was closed with interrupted 3-0 Vicryl and then skin was closed with intracuticular 3-0 Maxon Steri-Strips then completed the procedure sterile dressing was applied as well as an abdominal binder and the patient was then transferred recovery in stable condition sponge and needle counts were correct x2 KENDALL Gonzalez was present for the entire operation for help with wound retraction wound closure.
--- NOTE | 2019-10-29 10:03 | Discharge Summary ---
Discharge Summary (SDC) - Discharge Final Diagnosis: abdominal wall mass Date of Surgery: 10/29/19 Discharge Date: 10/29/19 Condition: Good Treatment or Instructions: ok to remove abdominal binder in 3 days, then ok to shower ok to removd the outer dressing before shower. leave steristrips in place then replace the abd binder after shower. keep fidel bulb squeezed down ok to discard fluid in sink no need to record output. Prescriptions: Oxycodone HCl/Acetaminophen [Percocet 7.5-325 mg Tablet] 1 each PO Q6HP PRN #15 tablet PRN Reason: Referrals: AURORA ARREGUIN [employer] DEVELOPER [Primary Care Provider] - Discharge Diet: As Tolerated Discharge Activity: Activity As Tolerated, No Lifting Over 10 Pounds Report the Following to Your Physician Immediately: Shortness of Breath, Nausea, Vomiting, Increase in Pain, Fever over 101 Degrees, Unusual Bleeding
[2019-10-29] MEDS: FENTANYL CITRATE INJ/PF 100 MCG/2 ML AMPUL ONE ×2 (10:15→10:20)
[2019-10-29] MEDS ORDERED: OXYCODONE-ACETAMINOPHEN 5-325 MG TABLET ONE (11:12)
[2019-10-29 12:18] VITALS: BP 121/71
[2019-10-29] MEDS ORDERED: PHENYLEPHRINE HCL INJ/PF 10 MG/1 ML SDV ONE (14:42)
[2019-10-29] MEDS ORDERED: NEOSTIGMINE METHYLSULFATE 10 MG/10 ML VIAL ONE (14:42)
[2019-10-29] MEDS ORDERED: ONDANSETRON HCL INJ/PF 4 MG/2 ML SDV ONE (14:42)
[2019-10-29] MEDS ORDERED: DEXAMETHASONE SOD PHOSPHATE INJ 4 MG/1 ML VIAL ONE (14:42)
[2019-10-29] MEDS ORDERED: GLYCOPYRROLATE 1 MG/5 ML VIAL ONE (14:42)
== END 2019-10-29 12:30 | disposition home or self-care (01) ==
LOC: OROUT 06:45
PROVIDERS: ATTEND Surgery
DX: L76.32 Postprocedural hematoma of skin and subcutaneous tissue following other procedure (principal); Y83.8 Other surgical procedures as the cause of abnormal reaction of the patient, or of later complication, without mention of misadventure at the time of the procedure; Z88.0 Allergy status to penicillin; Z79.899 Other long term (current) drug therapy; Z03.818 Encounter for observation for suspected exposure to other biological agents ruled out
CPT/HCPCS: 87635; 88342 ×2; 88341 ×2; 88305 ×2; 00800; 17999; 22902; J2250; J1100; J3490 ×2; J3010 ×2; J2710; J2370; J2405; J2704; J0690; C9290; C9803; 800